=== PATIENT | female | born 1965 | race Caucasian/White ===

== ENCOUNTER 2017-08-13 15:58 | Observation (INO) | payer OTHER ==
[~2017-08-13] VITALS: Ht 165.1 cm; Wt 90.5 kg
[2017-08-13 16:00] VITALS: PULSE 93; RESP 18; TEMP 97.6; O2SAT 97
[2017-08-13] MEDS ORDERED: LEVE10003 PO (16:37)
[2017-08-13] MEDS ORDERED: ROPI0.5T PO (16:37)
--- NOTE | 2017-08-13 16:38 | PD ---
HPI Chief Complaint: Chest Pain Time Seen by Provider: 16:38 Travel History International Travel<30 days: No Contact w/Intl Traveler<30days: No Traveled to known affect area: No History of Present Illness HPI 52-year-old female came to the emergency room with history of left-sided chest pain on and off for past almost one week. No aggravating or relieving factors. Patient says the pain starts from her left arm and goes to her left armpit and just under her left breast. The chest pain comes and goes but the arm pain is constant. Patient has never had this kind of problem prior to this. She does not smoke. She does drink alcohol. Patient has never had any coronary artery disease workup. Her is here with her. No associated shortness of breath symptoms or syncopal episode. Patient did drive 5 hours one week ago from [employer] to come here. No previous history of PE or DVT. PFSH Past Medical History Narrative Medical List of her past medical, surgical, social and family history is reviewed from the nursing note. Social History Tobacco Use: No Allergies-Medications (Allergen,Severity, Reaction): Coded Allergies: No Known Allergies (Unverified , 08/13/17) Comments No known drug allergies. Reported Meds & Prescriptions Reported Meds & Active Scripts Active Reported Levetiracetam 1,000 Mg Tab 1,000 Mg PO BID Ropinirole 0.5 Mg Tab 0.5 Mg PO BID PRN Narrative Medication List of her home medications reviewed from the nursing note. Review of Systems Except as stated in HPI: all other systems reviewed are Neg Cardiovascular: Positive: Chest Pain or Discomfort Musculoskeletal: Positive: Pain Physical Exam Narrative GENERAL: Awake, alert, mild distress, anxious SKIN: Focused skin assessment warm/dry. HEAD: Atraumatic. Normocephalic. EYES: Pupils equal and round. No scleral icterus. No injection or drainage. ENT: No nasal bleeding or discharge. Mucous membranes pink and moist. NECK: Trachea midline. No JVD. CARDIOVASCULAR: Regular rate and rhythm. No murmur appreciated. RESPIRATORY: No accessory muscle use. Clear to auscultation. Breath sounds equal bilaterally. GASTROINTESTINAL: Abdomen soft, non-tender, nondistended. Hepatic and splenic margins not palpable. MUSCULOSKELETAL: No obvious deformities. No clubbing. No cyanosis. No edema. NEUROLOGICAL: Awake and alert. No obvious cranial nerve deficits. Motor grossly within normal limits. Normal speech. PSYCHIATRIC: Appropriate mood and affect; insight and judgment normal. Data Data Last Documented VS Vital Signs Date Time Temp Pulse Resp B/P (MAP) Pulse Ox O2 Delivery O2 Flow Rate FiO2 08/13/17 16:00 97.6 93 18 97 Orders Orders Electrocardiogram (08/13/17 16:23) Basic Metabolic Panel (Bmp) (08/13/17 17:16) Complete Blood Count With Diff (08/13/17 17:16) D-Dimer (08/13/17 17:16) Magnesium (Mg) (08/13/17 17:16) Prothrombin Time / Inr (Pt) (08/13/17 17:16) Troponin I (08/13/17 17:16) Chest, Single Ap (08/13/17 17:16) Ecg Monitoring (08/13/17 17:16) Bilateral Bp Monitoring (08/13/17 17:16) Iv Access Insert/Monitor (08/13/17 17:16) Oximetry (08/13/17 17:16) Oxygen Administration (08/13/17 17:16) Sodium Chloride 0.9% Flush (Ns Flush) (08/13/17 17:30) Aspirin Chew (Aspirin Chew) (08/13/17 18:00) Admit Order (Ed Use Only) (08/13/17 18:13) Place In Observation (08/13/17 18:14) Activity Bed Rest With Brp (08/13/17 18:14) Vital Signs (Adult) Q4H (08/13/17 18:14) Cardiac Rhythm .As Directed (08/13/17 18:14) Notify Dr: Other .PRN (08/13/17 18:14) Notify Parameters (08/13/17 18:14) Resp Oxygen Nasal Cannula (08/13/17 ) Diet Heart Healthy (08/13/17 Dinner) Ckmb (Isoenzyme) Profile (08/13/17 18:14) Ckmb (Isoenzyme) Profile (08/13/17 21:14) Troponin I (08/13/17 18:14) Troponin I (08/13/17 21:14) Electrocardiogram (08/13/17 21:14) ^ Obtain (08/13/17 18:14) Sodium Chloride 0.9% Flush (Ns Flush) (08/13/17 21:00) Ondansetron Inj (Zofran Inj) (08/13/17 18:15) Fare Collector / Telemetry [place].Q8H (08/13/17 18:14) Labs Laboratory Tests Test 08/13/17 17:00 White Blood Count 11.5 TH/MM3 Red Blood Count 4.63 MIL/MM3 Hemoglobin 13.1 GM/DL Hematocrit 39.4 % Mean Corpuscular Volume 85.0 FL Mean Corpuscular Hemoglobin 28.3 PG Mean Corpuscular Hemoglobin Concent 33.3 % Red Cell Distribution Width 14.0 % Platelet Count 423 TH/MM3 Mean Platelet Volume 8.4 FL Neutrophils (%) (Auto) 69.7 % Lymphocytes (%) (Auto) 19.9 % Monocytes (%) (Auto) 5.3 % Eosinophils (%) (Auto) 4.4 % Basophils (%) (Auto) 0.7 % Neutrophils # (Auto) 8.0 TH/MM3 Lymphocytes # (Auto) 2.3 TH/MM3 Monocytes # (Auto) 0.6 TH/MM3 Eosinophils # (Auto) 0.5 TH/MM3 Basophils # (Auto) 0.1 TH/MM3 CBC Comment DIFF FINAL Differential Comment Prothrombin Time 10.0 SEC Prothromb Time International Ratio 1.0 RATIO D-Dimer Quantitative (PE/DVT) LESS THAN 0.19 MG/L FEU Blood Urea Nitrogen 21 MG/DL Creatinine 0.87 MG/DL Random Glucose 87 MG/DL Calcium Level 8.8 MG/DL Magnesium Level 2.1 MG/DL Sodium Level 140 MEQ/L Potassium Level 3.9 MEQ/L Chloride Level 110 MEQ/L Carbon Dioxide Level 24.3 MEQ/L Anion Gap 6 MEQ/L Estimat Glomerular Filtration Rate 69 ML/MIN Troponin I LESS THAN 0.02 NG/ML MDM Medical Decision Making Medical Screen Exam Complete: Yes Emergency Medical Condition: Yes Medical Record Reviewed: Yes Interpretation(s) Twelve-lead EKG was reviewed by me. Normal sinus rhythm, normal axis, nonspecific ST-T wave changes. Heart rate of 93 bpm. Differential Diagnosis ACS, non-STEMI, PE, atypical chest pain Narrative Course 5:55 PM awaiting for blood test results. Chest x-ray is read as unremarkable by the radiologist. If all the test results are negative patient will be admitted to the chest pain center. 6:12 PM all the blood test results are negative. Chest x-ray is unremarkable. Procedures EKG Prior to Arrival: No Diagnosis Primary Impression: Chest pain Qualified Codes: R07.9 - Chest pain, unspecified Admitting Information Admitting Physician Requests: Christian Boles MD Aug 13, 2017 16:38
[2017-08-13] MEDS ORDERED: SODIUM CHLORIDE 0.9% FLUSH 10 ML FLUSH IVF PRN (17:30)
--- NOTE | 2017-08-13 17:36 | RADRPT ---
EXAM DATE/TIME: 08/13/2017 17:22 [facility] COMPARISON: No previous studies available for comparison. INDICATIONS : Short of breath. MEDICAL HISTORY : None. SURGICAL HISTORY : None. ENCOUNTER: Initial ACUITY: 1 day PAIN SCORE: 5/10 LOCATION: Bilateral chest FINDINGS: A single view of the chest demonstrates the lungs to be symmetrically aerated without evidence of mas s, infiltrate or effusion. Mild basilar atelectasis. The cardiomediastinal contours are unremarkable. Osseous structures are intact. CONCLUSION: 1. Minimal basilar atelectasis. Alejandro Guido MD on August 13, 2017 at 17:33 Board Certified Radiologist. This report was verified electronically.
[2017-08-13 17:43] LABS: BASOPHIL # 0.1 TH/MM3 (0-0.2); BASOPHIL % 0.7 % (0.0-2.0); EOSINOPHIL # 0.5 TH/MM3 (0-0.4); EOSINOPHIL % 4.4 % (0.0-4.0); HEMATOCRIT 39.4 % (35.0-46.0); HEMOGLOBIN 13.1 GM/DL (11.6-15.3); LYMPH % 19.9 % (9.0-44.0); LYMPHOCYTE # 2.3 TH/MM3 (1.0-4.8); MEAN CORPUSCULAR HEMOGLOBIN 28.3 PG (27.0-34.0); MEAN CORPUSCULAR HGB CONC 33.3 % (32.0-36.0); MEAN PLATELET VOLUME 8.4 FL (7.0-11.0); MONO % 5.3 % (0.0-8.0); MONOCYTE # 0.6 TH/MM3 (0-0.9); NEUT % 69.7 % (16.0-70.0); PLATELET COUNT 423 TH/MM3 (150-450); RED BLOOD COUNT 4.63 MIL/MM3 (4.00-5.30); WHITE BLOOD COUNT 11.5 TH/MM3 (4.0-11.0)
[2017-08-13 17:54] LABS: D-DIMER LESS THAN 0.19 MG/L FEU (0.00-0.50)
[2017-08-13] MEDS ORDERED: ASPIRIN 81 MG CHEW TAB CHEW ONE (18:00)
[2017-08-13 18:04] LABS: BICARBONATE 24.3 MEQ/L (21.0-32.0); BLOOD UREA NITROGEN 21 MG/DL (7-18); CALCIUM 8.8 MG/DL (8.5-10.1); CHLORIDE 110 MEQ/L (98-107); CREATININE 0.87 MG/DL (0.50-1.00); GLOMERULAR FILTRATION RATE 69 ML/MIN (>89); GLUCOSE,RANDOM 87 MG/DL (74-106); MAGNESIUM 2.1 MG/DL (1.5-2.5); SODIUM (NA) 140 MEQ/L (136-145)
[2017-08-13 18:06] LABS: TROPONIN I LESS THAN 0.02 NG/ML (0.02-0.05)
[2017-08-13] MEDS ORDERED: ONDANSETRON HCL 4 MG/2 ML VIAL IV PUSH PRN (18:15)
--- NOTE | 2017-08-13 19:19 | HHI.HP ---
HPI Primary Care Physician No Primary Care Physician Chief Complaint Left arm and chest pain History of Present Illness 52-year-old female history of seizures and restless leg syndrome presents emergency room for further evaluation left arm and chest pain. Onset 3 weeks ago. Location left arm with radiation to left inframammary area. Characterized as a "deep inside dull pain." No associated symptoms of nausea, vomiting, dyspnea, or diaphoresis. No precipitating or relieving factors. Duration constant for 3 weeks, waxing and waning in intensity. Severity varies, reporting pain worse during evening hours. No recent or remote injury to affected area or cervical area. A few times noticed left hand numbness/ tingling. Two weeks ago [place] [address], pain become so severe with accompanying dizziness she pulled over and waited approximately one hour until symptoms subsided. She and her family are visiting from [place], [place] for their daughter's cheerleader competition. They were planning on returning home tonight , however due to severity of discomfort decided to be evaluated in ER before returning home. Review of Systems General: No fatigue,weakness, fever, chills, recent illness, or change in appetite. Has been under general state of health. Endorses recent weight gain over last 6 months since retiring. HEENT: No CHRISTOPHER, no vision changes, no nasal congestion or drainage, no dysphasia CV: Continues to have discomfort as stated above. RESP: No SOB, cough, wheeze, or recent URI. GI: No nausea, vomiting, bowel changes, diarrhea, constipation, pain, distention , melena, or blood in the stool. : No dysuria, urgency, frequency [employer] WORK[employer]: Last menses 6-7 months ago. States she believes she is post menopausal. EXT: No lower leg edema, no paraesthesias MS: No discomfort, injury, trauma, or change in ROM NEURO: No change in memory,difficulty with balance, LOC, motor/sensory deficits PSYCH: No anxiety, depression SKIN: No rashes, no concerning lesions Past Family Social History Allergies: Coded Allergies: No Known Allergies (Unverified , 08/13/17) Past Medical History Seizure disorder, restless leg syndrome Past Surgical History Right knee and right foot surgery Reported Medications Reported Meds & Active Scripts Active Reported Levetiracetam 1,000 Mg Tab 1,000 Mg PO BID Ropinirole 0.5 Mg Tab 0.5 Mg PO BID PRN Active Ordered Medications Current Medications Medications (Trade) Dose Ordered Sig/Linda Route Start Time Stop Time Status Last Admin (NS Flush) 2 ml UNSCH PRN IVF 08/13/17 17:30 (NS Flush) 2 ml BID IV FLUSH 08/13/17 21:00 (Zofran Inj) 4 mg Q6H PRN IV PUSH 08/13/17 18:15 Family History Sister required cardiac stent age 49. Reports strong family history on mother's side: Grandfather [place] age 45, uncle [place] age 45. Another Aunt and Uncle required CABG in the mid 50s. 2 cousins age 50 from sudden [place]. Social History No known hypertension, diabetes, or hyperlipidemia. Lifelong non-smoker. Endorses 3-4 alcohol beverages nightly. Denies any illegal drug use. . From [place], [place]. Retired chief of police. Past cardiac testing None Physical Exam Vital Signs Vital Signs Date Time Temp Pulse Resp B/P (MAP) Pulse Ox O2 Delivery O2 Flow Rate FiO2 08/13/17 16:00 97.6 93 18 97 Physical Exam GENERAL: Alert WN, WD, NAD, pleasant, moderately obese, female HEAD: NC, AT EYES: Sclera clear, conjunctiva without injection, pupils equal and round ENT: Mucous membranes pink and moist NECK: Supple, no masses, trachea midline CV: RRR, without murmur, rub, gallop, no JVD, S1-S2 no S3-S4. No carotid bruits. Chest wall nontender with palpation. RESP: Clear lungs throughout bilateral, no crackles, wheeze, rhonchi, symmetrical chest rise, nonlabored, able to speak in full sentences ABD: Soft, NT, ND, no masses, positive bowel tones EXT: Pulses +2x4, no dependent edema MS: Normal tone x4 extremities, nontender, no obvious deformities, full range of motion of left shoulder, no pain with passive ROM of left shoulder adduction or abduction NEURO: CN II through CN XII grossly intact, motor strength 5/5 PSYCH: A+O x3, pleasant affect, appropriate speech, mood, insight and judgment, mildly anxious SKIN: Normal turgor, normal texture, no lesions, no rashes, brisk cap refill, even hair distribution Laboratory Laboratory Tests Test 08/13/17 17:00 White Blood Count 11.5 Red Blood Count 4.63 Hemoglobin 13.1 Hematocrit 39.4 Mean Corpuscular Volume 85.0 Mean Corpuscular Hemoglobin 28.3 Mean Corpuscular Hemoglobin Concent 33.3 Red Cell Distribution Width 14.0 Platelet Count 423 Mean Platelet Volume 8.4 Neutrophils (%) (Auto) 69.7 Lymphocytes (%) (Auto) 19.9 Monocytes (%) (Auto) 5.3 Eosinophils (%) (Auto) 4.4 Basophils (%) (Auto) 0.7 Neutrophils # (Auto) 8.0 Lymphocytes # (Auto) 2.3 Monocytes # (Auto) 0.6 Eosinophils # (Auto) 0.5 Basophils # (Auto) 0.1 CBC Comment DIFF FINAL Differential Comment Prothrombin Time 10.0 Prothromb Time International Ratio 1.0 D-Dimer Quantitative (PE/DVT) LESS THAN 0.19 Blood Urea Nitrogen 21 Creatinine 0.87 Random Glucose 87 Calcium Level 8.8 Magnesium Level 2.1 Sodium Level 140 Potassium Level 3.9 Chloride Level 110 Carbon Dioxide Level 24.3 Anion Gap 6 Estimat Glomerular Filtration Rate 69 Troponin I LESS THAN 0.02 Result Diagram: 08/13/17 1700 08/13/17 1700 Imaging Last 48 hours Impressions Chest X-Ray 08/13/17 1716 Signed Impressions: Service Date/Time: Sunday, August 13, 2017 17:22 - CONCLUSION: 1. Minimal basilar atelectasis. Alejandro Guido MD Course EKG Normal sinus rhythm, no ST-T segment changes Caprini VTE Risk Assessment Caprini VTE Risk Assessment: No/Low Risk (score <= 1) Caprini Risk Assessment Model Point Value = 1 Point Value = 2 Point Value = 3 Point Value = 5 Age 41-60 Minor surgery BMI > 25 kg/m2 Swollen legs Varicose veins or History of unexplained or recurrent spontaneous Oral contraceptives or hormone replacement Sepsis (< 1 month) Serious lung disease, including pneumonia (< 1 month) Abnormal pulmonary function Acute myocardial infarction Congestive heart failure (< 1 month) History of inflammatory bowel disease Medical patient at bed rest Age 61-74 Arthroscopic surgery Major open surgery (> 45 min) Laparoscopic surgery (> 45 min) Malignancy Confined to bed (> 72 hours) Immobilizing plaster cast Central venous access Age >= 75 History of VTE Family history of VTE Factor V Leiden Prothrombin [id number] Lupus anticoagulant Anticardiolipin antibodies Elevated serum homocysteine Heparin-induced thrombocytopenia Other congenital or acquired thrombophilia Stroke (< 1 month) Elective arthroplasty Hip, pelvis, or leg fracture Acute spinal cord injury (< 1 month) Prophylaxis Regimen Total Risk Factor Score Risk Level Prophylaxis Regimen 0-1 Low Early ambulation 2 Moderate Order ONE of the following: *Sequential Compression Device (SCD) *Heparin 5000 units SQ BID 3-4 Higher Order ONE of the following medications: *Heparin 5000 units SQ TID *Enoxaparin/Lovenox 40 mg SQ daily (WT < 150 kg, CrCl > 30 mL/min) *Enoxaparin/Lovenox 30 mg SQ daily (WT < 150 kg, CrCl > 10-29 mL/min) *Enoxaparin/Lovenox 30 mg SQ BID (WT < 150 kg, CrCl > 30 mL/min) AND/OR *Sequential Compression Device (SCD) 5 or more Highest Order ONE of the following medications: *Heparin 5000 units SQ TID (Preferred with Epidurals) *Enoxaparin/Lovenox 40 mg SQ daily (WT < 150 kg, CrCl > 30 mL/min) *Enoxaparin/Lovenox 30 mg SQ daily (WT < 150 kg, CrCl > 10-29 mL/min) *Enoxaparin/Lovenox 30 mg SQ BID (WT < 150 kg, CrCl > 30 mL/min) AND *Sequential Compression Device (SCD) Assessment and Plan Assessment and Plan #1 Atypical chest pain-chest pain center. Rule out 3 sets of EKGs, cardiac enzymes, and monitor on telemetry overnight. Will be seen and evaluated by Dr. Juan Figueroa. Reassurance provided duration of discomfort suspicious of radicular pain. Discussed likelihood completing stress test in a.m. patient agreeable to plan of care. Verbalizes understanding. Toradol 30 mg IV x2 dose overnight. Reevaluate in a.m. #2 History of seizures-continue Levetiracetam #3 History of restless leg syndrome-continue ropinirole Mira Martin Aug 13, 2017 19:19
[2017-08-13] MEDS ORDERED: ACETAMINOPHEN 500 MG CPLT PO PRN (19:30)
[2017-08-13] MEDS ORDERED: NITROGLYCERIN 0.4 MG SL 25 TABS/BTL SL PRN (19:30)
[2017-08-13] MEDS: SODIUM CHLORIDE 0.9% FLUSH 10 ML FLUSH IV FLUSH SCH (19:49)
[2017-08-13] MEDS: levETIRAcetam 500 MG TAB PO SCH (19:53)
[2017-08-13] MEDS ORDERED: KETOROLAC TROMETHAMINE 30 MG/ML (IVP) VIAL IV PUSH SCH (20:00)
[2017-08-13 20:24] LABS: TROPONIN I LESS THAN 0.02 NG/ML (0.02-0.05)
[2017-08-13 20:57] VITALS: BP 155/88; PULSE 86; RESP 18; TEMP 97.8; O2SAT 97
[2017-08-13 22:18] LABS: TROPONIN I LESS THAN 0.02 NG/ML (0.02-0.05)
[2017-08-14 01:57] VITALS: BP 145/80; PULSE 70; RESP 18; TEMP 97.7; O2SAT 95
[2017-08-14 02:06] VITALS: PULSE 91
[2017-08-14 04:39] VITALS: BP 142/81; PULSE 75; RESP 16; TEMP 98.1; O2SAT 96
[2017-08-14 07:16] VITALS: BP 134/87; PULSE 70; RESP 16; TEMP 98.7; O2SAT 96
[2017-08-14 07:29] VITALS: PULSE 7
[2017-08-14] MEDS: levETIRAcetam 500 MG TAB PO SCH (08:46)
[2017-08-14] MEDS: SODIUM CHLORIDE 0.9% FLUSH 10 ML FLUSH IV FLUSH SCH (08:47)
[2017-08-14] MEDS ORDERED: ASPIRIN 325 MG TAB PO SCH (09:00)
--- NOTE | 2017-08-14 10:11 | HHI.DCPOC ---
Discharge Care Plan Diagnosis: (1) Chest pain Goals to Promote Your Health * To prevent worsening of your condition and complications * To maintain your health at the optimal level Directions to Meet Your Goals Take your medications as prescribed Follow your dietary instruction Follow activity as directed Keep your appointments as scheduled Take your immunizations and boosters as scheduled If your symptoms worsen call your PCP, if no PCP go to Urgent Care Center or Emergency Room Smoking is Dangerous to Your Health. Avoid second hand smoke Call the 24-hour hour crisis hotline for domestic abuse at Leonel Lee Aug 14, 2017 10:11
--- NOTE | 2017-08-14 15:40 | EKG ---
Date Performed: 08/14/2017 Time Performed: 00:06:06 PTAGE: 52 years EKG: Sinus rhythm LOW QRS VOLTAGE IN PRECORDIAL LEADS BORDERLINE ECG PREVIOUS TRACING : 08/13/2017 21.20 Since previous tracing, no significant change noted DOCTOR: Juan Figueroa Interpretating Date/Time 08/14/2017 15:39:33
--- NOTE | 2017-08-14 15:41 | EKG ---
Date Performed: 08/13/2017 Time Performed: 21:20:27 PTAGE: 52 years EKG: Sinus rhythm LOW QRS VOLTAGE IN PRECORDIAL LEADS BORDERLINE ECG INTERPRETATION BASED ON A DEFAULT AGE OF 40 YEARS NO PREVIOUS TRACING DOCTOR: Juan Figueroa Interpretating Date/Time 08/14/2017 15:40:25
--- NOTE | 2017-08-14 15:42 | EKG ---
Date Performed: 08/13/2017 Time Performed: 16:27:46 PTAGE: 52 years EKG: Sinus rhythm LOW QRS VOLTAGE IN PRECORDIAL LEADS BORDERLINE ECG NO PREVIOUS TRACING DOCTOR: Juan Figueroa Interpretating Date/Time 08/14/2017 15:40:50
--- NOTE | 2017-08-14 15:43 | TR ---
Date Performed: 08/14/2017 Time Performed: 09:41:41 DOCTOR: Juan Figueroa DRUG LIST: CLINICAL HISTORY: CHEST PAIN R/O ACS REASON FOR TEST: REASON FOR ENDING: OBSERVATION: CONCLUSION: KAVITHA PROTOCOL. NO CP. TEST STOPPED AFTER EXCEEDING GOAL HR SECONADARY TO SOB AND LE G FATIGUE.Maximum OI=833 % Max HR Achieved=91.0% Maximum DH=375/82 Total Exercise Time=6:00 COMMENTS: Patient exercised using the Kavitha protocol. No electrocardiographic changes were seen to suggest ischemia. Hemodynamic response to exercise was normal. No significant arrhythmia was prese nt.
== END 2017-08-14 11:05 | disposition home or self-care (01) ==
LOC: NEPC 15:58 → NEDA 18:15 → NEPGCP 19:26
DX: R07.89 Other chest pain (principal); G40.909 Epilepsy, unspecified, not intractable, without status epilepticus; G25.81 Restless legs syndrome; R06.02 Shortness of breath; M79.622 Pain in left upper arm; R20.0 Anesthesia of skin; R20.2 Paresthesia of skin; R42 Dizziness and giddiness
CPT/HCPCS: 71045; 80048; 82550; 82552; 83735; 84484; 85025; 85379; 85610; 93005; 93017; 99285; G0378; J1885